=== PATIENT | female | born 1995 | race Two or more races ===

== ENCOUNTER 2016-12-23 03:07 | Emergency (ER) | payer OTHER ==
--- NOTE | 2016-12-23 03:26 | PDOC ---
[id number] No Limitations - History of Present Illness Initial Comments: 12/23/16 03:49 The patient is a 21 year old female, [facility], with a significant past medical history of dermatographia, asthma, anxiety, and depression, who presents to the emergency department complaining of intermittent chest pain for approximately 1 month. The patient describes her chest pain as a tightness and a pressure. The patient denies any associated shortness of breath, diaphoresis, or palpitation. The patient admits to a poor inconsistent diet due to long work hours. The patient reports she has not eaten for several hours and reports a burning sensation around her chest. The patient reports a history of costochondritis. The patient denies any abdominal pain, nausea, vomiting, diarrhea, or constipation. The patient denies any fever, chills, cough, headache , or dizziness. The patient denies any recent travel or sick contacts. Allergies: Metronidazole Past Surgical History: None reported. Social History: Current everyday smoker(approximately 6 cigarettes per day). Denies alcohol or drug use. PCP: Dr. Santana <Talat Hoyt - Last Filed: 12/23/16 03:49> <Christie Choi - Last Filed: 12/23/16 04:50> - General Stated Complaint: CHEST PAIN Time Seen by Provider: 12/23/16 03:18 Past History <Talat Hoyt - Last Filed: 12/23/16 03:49> - Past Medical History Asthma: Yes Psychiatric Problems: Yes (ANXIETY,DEPRESSION) - Reproductive History Cervical CA: No Dysfunctional Uterine Bleeding: No Ectopic : No Endometrial CA: No Polycystic Ovaries: No Tubal Ligation: No - Immunization History Immunization Up to Date: Yes - Psycho/Social/Smoking Cessation Hx Anxiety: Yes Suicidal Ideation: No Smoking History: Former smoker Have you smoked in the past 12 months: Yes Number of Cigarettes Smoked Daily: 6 'Breaking Loose' booklet given: 03/07/16 Hx Alcohol Use: No Drug/Substance Use Hx: No Substance Use Type: None <Christie Choi - Last Filed: 12/23/16 04:50> - Past Medical History Allergies/Adverse Reactions: Allergies Allergy/AdvReac Type Severity Reaction Status Date / Time metronidazole [From Flagyl] Allergy Hives Verified 12/23/16 03:26 Home Medications: Ambulatory Orders Lurasidone HCl [Latuda] 40 mg PO DAILY 05/17/16 Ibuprofen [Motrin -] 400 mg PO Q6H #30 tablet 10/01/16 Pantoprazole Sodium [Protonix -] 40 mg PO DAILY #30 tablet.ec 12/23/16 Sertraline HCl [Zoloft] 25 mg PO DAILY 12/23/16 Review of Systems - Review of Systems Able to Perform ROS?: Yes Comments:: 12/23/16 03:50 GENERAL/CONSTITUTIONAL: No fever or chills. No weakness. HEAD, EYES, EARS, NOSE AND THROAT: No change in vision. No ear pain or discharge. No sore throat. CARDIOVASCULAR: +Chest pain(tightness, pressure, and burning) No shortness of breath. RESPIRATORY: No cough, wheezing, or hemoptysis. GASTROINTESTINAL: No nausea, vomiting, diarrhea or constipation. GENITOURINARY: No dysuria, frequency, or change in urination. MUSCULOSKELETAL: No joint or muscle swelling or pain. No neck or back pain. SKIN: No rash NEUROLOGIC: No headache, vertigo, loss of consciousness, or change in strength/ sensation. ENDOCRINE: No increased thirst. No abnormal weight change. HEMATOLOGIC/LYMPHATIC: No anemia, easy bleeding, or history of blood clots. ALLERGIC/IMMUNOLOGIC: No hives or skin allergy. <Talat Hoyt - Last Filed: 12/23/16 03:49> *Physical Exam - Vital Signs Last Vital Signs Temp Pulse Resp BP Pulse Ox 98.2 F 80 14 116/81 100 12/23/16 03:27 12/23/16 03:27 12/23/16 03:27 12/23/16 03:27 12/23/16 03:27 - Physical Exam Comments: 12/23/16 03:51 GENERAL: Awake, alert, and fully oriented, in no acute distress HEAD: No signs of trauma EYES: PERRLA, EOMI, sclera anicteric, conjunctiva clear ENT: Auricles normal inspection, hearing grossly normal, nares patent, oropharynx clear without exudates. Moist mucosa NECK: Normal ROM, supple, no lymphadenopathy, JVD, or masses LUNGS: Breath sounds equal, clear to auscultation bilaterally. No wheezes, and no crackles HEART: Regular rate and rhythm, normal S1 and S2, no murmurs, rubs or gallops ABDOMEN: Soft, nontender, normoactive bowel sounds. No guarding, no rebound. No masses EXTREMITIES: Normal range of motion, no edema. No clubbing or cyanosis. No cords, erythema, or tenderness NEUROLOGICAL: Cranial nerves II through XII grossly intact. Normal speech, normal gait SKIN: Warm, Dry, normal turgor, no rashes or lesions noted. <Talat Hoyt - Last Filed: 12/23/16 03:49> Medical Decision Making - Medical Decision Making 12/23/16 04:47 Pt comes with burning sensation in chest on and off x 1 month. Occurs when she doesn't eat. States that she eats only 2 meals daily. She has a normal EKG, same as her old pattern from year ago. Pt's exam is normal. Pt's vitals are normal; she will not require cxr or labs at this time. Pt has GERD and she will be teated with maalox in the ER. Protonix rx sent to her pharmacy. Pt is stable for discharge. Follow with GI; Eat regular meals. Quit smoking cigarettes. <Christie Choi - Last Filed: 12/23/16 04:50> *DC/Admit/Observation/Transfer - Attestations Scribe Attestion: 12/23/16 03:52 Documentation prepared by Talat Hoyt, acting as medical genetics director for Christie Choi MD. <Talat Hoyt - Last Filed: 12/23/16 03:49> - Discharge Dispostion Admit: No <Christie Choi - Last Filed: 12/23/16 04:50> Diagnosis at time of Disposition: GERD (gastroesophageal reflux disease) - Discharge Dispostion Disposition: HOME Condition at time of disposition: Stable - Prescriptions Prescriptions: Pantoprazole Sodium [Protonix -] 40 mg PO DAILY #30 tablet.ec - Referrals Referrals: David Chand MD [Staff Physician] - Esme Cui MD [Primary Care Provider] - - Patient Instructions Printed Discharge Instructions: DI for Gastroesophageal Reflux Disease (GERD)
[2016-12-23 03:31] VITALS: BP 116/81; PULSE 80; TEMP 98.2; BMI 30.3
[2016-12-23] MEDS ORDERED: MAG HYDROX/AL HYDROX/SIMETH 30 ML UNIT-DOSE CUP PO ONE (03:46)
[2016-12-23] MEDS ORDERED: MAG HYDROX/AL HYDROX/SIMETH 30 ML UNIT-DOSE CUP ONE (03:50)
--- NOTE | 2016-12-27 15:23 | EKG ---
Test Reason : Blood Pressure : / mmHG Vent. Rate : 075 BPM Atrial Rate : 075 BPM P-R Int : 132 ms QRS Dur : 058 ms QT Int : 356 ms P-R-T Axes : 036 044 020 degrees QTc Int : 397 ms POOR DATA QUALITY, INTERPRETATION MAY BE ADVERSELY AFFECTED NORMAL SINUS RHYTHM LOW VOLTAGE QRS NONSPECIFIC ST AND T WAVE ABNORMALITY ABNORMAL ECG WHEN COMPARED WITH ECG OF 01-OCT-2016 11:56, NO SIGNIFICANT CHANGE WAS FOUND Confirmed by JERRY FALK MD ([id number]) on 12/27/2016 3:23:40 PM Referred By: Confirmed By:JERRY FALK MD
== END 2016-12-23 03:52 | disposition home or self-care (01) ==
LOC: JER 03:07
DX: K21.9 Gastro-esophageal reflux disease without esophagitis (principal); J45.909 Unspecified asthma, uncomplicated; F41.8 Other specified anxiety disorders; F17.210 Nicotine dependence, cigarettes, uncomplicated
CPT/HCPCS: 93005; 93010; 99281-25

== ENCOUNTER 2017-07-28 18:53 | Emergency (ER) | payer OTHER ==
[2017-07-28 19:13] VITALS: TEMP 98.6; BMI 28.2
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
[2017-07-28] MEDS ORDERED: SODIUM CHLORIDE 1,000 ML IV STA (20:14)
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
[2017-07-28 20:46] LABS: BASOPHIL 0.5 % (0-2.0); EOSINOPHIL 2.7 % (0-4.5); MCH 29.6 pg (25.7-33.7); MCHC 33.3 g/dl (32.0-36.0); MEAN PLT VOLUME 9.6 fl (7.5-11.1); NEUTROPHILS 60.1 % (42.8-82.8); PLATELET COUNT 296 K/MM3 (134-434); WHITE BLOOD COUNT 7.1 K/mm3 (4.0-10.0)
[2017-07-28 20:48] LABS: URINE APPEARANCE CLEAR; URINE BILIRUBIN NEGATIVE (NEGATIVE); URINE BLOOD 2+ (NEGATIVE); URINE COLOR LTYELLOW; URINE GLUCOSE (UA) NEGATIVE (NEGATIVE); URINE KETONE NEGATIVE (NEGATIVE); URINE NITRITE NEGATIVE (NEGATIVE); URINE PROTEIN NEGATIVE (NEGATIVE); URINE UROBILINOGEN NEGATIVE mg/dL (0.2-1.0)
[2017-07-28 20:55] LABS: URINE MUCUS RARE; URINE RBC 1 /hpf (0-3); URINE WBC <1 /hpf (3-5)
[2017-07-28 21:15] LABS: ANION GAP 6 (8-16); BILIRUBIN,TOTAL 0.4 mg/dL (0.2-1.0); CALCIUM 8.9 mg/dL (8.5-10.1); CO2 27 mmol/L (21-32); CREATININE 0.6 mg/dL (0.55-1.02); GLUCOSE,RANDOM 88 mg/dL (74-106); SGOT/AST 17 U/L (15-37); SGPT/ALT 21 U/L (12-78); TOT PROT 7.4 g/dl (6.4-8.2)
[2017-07-28 21:16] LABS: ALK PHOS 114 U/L (45-117)
[2017-07-28 22:14] LABS: URINE LEUK ESTERASE TRACE (NEGATIVE)
[2017-07-29] MEDS ORDERED: ACETAMINOPHEN 500 MG TABLET (FP) PO ONE (01:40)
[2017-07-29] MEDS ORDERED: ACETAMINOPHEN 325 MG TABLET (FP) ONE (01:43)
[2017-07-29 02:24] VITALS: BP 103/58; PULSE 78
== END 2017-07-29 02:25 | disposition home or self-care (01) ==
LOC: JER 18:53
PROC: 3E0337Z Introduction of Electrolytic and Water Balance Substance into Peripheral Vein, Percutaneous Approach (ICD-10-PCS; principal; 2017-07-28)
DX: S20.20XA Contusion of thorax, unspecified, initial encounter (principal); Y04.0XXA Assault by unarmed brawl or fight, initial encounter; Y93.89 Activity, other specified; Y92.89 Other specified places as the place of occurrence of the external cause; Y99.8 Other external cause status
CPT/HCPCS: 36415; 71111-TC; 74176-TC; 80053; 81003; 81015; 84703; 85025; 96360; 99283-25

== ENCOUNTER 2017-10-06 19:30 | Emergency (ER) | payer OTHER ==
[2017-10-06 20:05] VITALS: BP 122/72; PULSE 84; TEMP 98.1; BMI 30.3
--- NOTE | 2017-10-06 20:19 | PDOC ---
History of Present Illness - General Chief Complaint: Vaginal Bleeding Stated Complaint: VAGINAL BLEEDING Time Seen by Provider: 10/06/17 19:39 History Source: Patient Exam Limitations: No Limitations - History of Present Illness Initial Comments: 10/06/17 20:07 Patient is a 22-year-old female with no past medical history. Complains of vaginal bleeding and lower abdominal pain 2 weeks. States initially she only had mild cramping and spotting which has been increase in the past 2 weeks. Today states her pain has increased, now has 8/10, crampy type pain in the suprapubic area, continuous heavy vaginal bleeding, change in 1 pad an hour since 3 PM. States she called her provider at [facility] and was told to go to the hospital. Patient states she was on Depakote which was discontinued one year ago and started OCPs 2 months ago. She denies any headache , dizziness, fever, chills, dysuria. PMD: Dr. Esme Santana PMHx: Negative PSocHx: neg etoh, drug, cig ALL: NKDA GENERAL/CONSTITUTIONAL: [No fever or chills. No weakness. No weight change.] HEAD, EYES, EARS, NOSE AND THROAT: [No change in vision. No ear pain or discharge. No sore throat.] CARDIOVASCULAR: [No chest pain or shortness of breath.] RESPIRATORY: [No cough, wheezing, or hemoptysis.] GASTROINTESTINAL: [No nausea, vomiting, diarrhea or constipation. No rectal bleeding.] GENITOURINARY: [No dysuria, frequency, or change in urination.] MUSCULOSKELETAL: [No joint or muscle swelling or pain. No neck or back pain.] SKIN AND BREASTS: [No rash or easy bruising.] NEUROLOGIC: [No headache, vertigo, loss of consciousness, or loss of sensation.] PSYCHIATRIC: [No depression or anxiety.] ENDOCRINE: [No increased thirst. No abnormal weight change.] HEMATOLOGIC/LYMPHATIC: [No anemia, easy bleeding, or history of blood clots.] ALLERGIC/IMMUNOLOGIC: [No hives or skin allergy. No latex allergy.] GENERAL: [The patient is awake, alert, and fully oriented, in mild distress.] HEAD: [Normal with no signs of trauma.] EYES: [Pupils equal, round and reactive to light, extraocular movements intact, sclera anicteric, conjunctiva clear.] ENT: [Ears normal, nares patent, oropharynx clear without exudates. Moist mucous membranes.] NECK: [Normal range of motion, supple without lymphadenopathy, JVD, or masses.] LUNGS: [Breath sounds equal, clear to auscultation bilaterally. No wheezes, and no crackles.] HEART: [Regular rate and rhythm, normal S1 and S2 without murmur, rub.] ABDOMEN: [Soft, (+) tenderness suprapubic, normoactive bowel sounds. No guarding, no rebound. No masses.] PELVIC: minimal bleeding from closed os, no adnexal tendernesss no CMT EXTREMITIES: [Normal range of motion, no edema. No clubbing or cyanosis. No cords, erythema, or tenderness.] NEUROLOGICAL: [Cranial nerves II through XII grossly intact. Normal speech, normal gait.] PSYCH: [Normal mood, normal affect.] SKIN: [Warm, Dry, normal turgor, no rashes or lesions noted.] Past History - Past Medical History Allergies/Adverse Reactions: Allergies Allergy/AdvReac Type Severity Reaction Status Date / Time metronidazole [From Flagyl] Allergy Hives Verified 10/06/17 20:05 Home Medications: Ambulatory Orders [place] Carbonate [Eskalith -] 300 mg PO DAILY 07/28/17 Naproxen [Naprosyn -] 500 mg PO BID PRN #14 tablet 07/29/17 Asthma: Yes COPD: No Psychiatric Problems: Yes (ANXIETY,DEPRESSION) - Reproductive History Cervical CA: No Dysfunctional Uterine Bleeding: No Ectopic : No Endometrial CA: No Polycystic Ovaries: No Tubal Ligation: No - Immunization History Immunization Up to Date: Yes - Suicide/Smoking/Psychosocial Hx Smoking History: Current every day smoker Have you smoked in the past 12 months: No Number of Cigarettes Smoked Daily: 5 Information on smoking cessation initiated: No 'Breaking Loose' booklet given: 03/07/16 Hx Alcohol Use: No Drug/Substance Use Hx: No Substance Use Type: None *Physical Exam - Vital Signs Last Vital Signs Temp Pulse Resp BP Pulse Ox 98.1 F 84 18 122/72 100 10/06/17 19:30 10/06/17 19:30 10/06/17 19:30 10/06/17 19:30 10/06/17 19:30 ED Treatment Course - LABORATORY CBC & Chemistry Diagram: 10/06/17 20:30 10/06/17 21:30 Medical Decision Making - Medical Decision Making 10/06/17 20:19 Patient is a 22-year-old female with no past medical history. Complains of vaginal bleeding and lower abdominal pain 2 weeks with increased bleeding today using 1 pad per hour since 3 pm. Bleeding is likely harmonal. vs stable labs, check test. re-assess 10/06/17 22:46 Laboratory Tests 10/06/17 20:30 WBC 8.7 Hgb 13.6 Hct 41.0 Plt Count 272 hcg neg, UA neg except for blood Patient is improved still has mild pain will give toradol 30mg IV p/e No addtional bleeding since being in the ED. Pad check small amount of dark stain on the pad. I discussed the physical exam findings, ancillary test results and final diagnoses with the patient. I answered all of the patient's questions. The patient was satisfied with the care received and felt comfortable with the discharge plan and treatment plan. The Patient agrees to follow up with the primary care physician within 24-72 hours. 10/06/17 22:51 *DC/Admit/Observation/Transfer Diagnosis at time of Disposition: Dysfunctional uterine bleeding - Discharge Dispostion Disposition: HOME Condition at time of disposition: Stable - Referrals Referrals: Esme Cui MD [Primary Care Provider] - - Patient Instructions Printed Discharge Instructions: DI for Vaginal Bleeding Additional Instructions: Your Discharge Instructions: You must call primary care physician within 24 hours to arrange follow-up. Return to the Emergency Department with any new, persistent or worsening symptoms, for fever, chills, SOB, headache, dizziness or any other concerning changes that may occur. He was follow-up with your [facility] doctor. - Post Discharge Activity
[2017-10-06 20:41] LABS: BASO # 0.1 # (0.1-1); BASO % 0.8 % (0-2.0); EOS # 0.2 # (0-4.5); EOS % 2.6 % (0-4.5); LYMPH # 2.1 (8-40); MCHC 33.3 g/dl (32.0-36.0); MEAN CELL VOLUME 90.1 fl (80-96); MEAN PLT VOLUME 9.9 fl (7.5-11.1); MONO # 0.5 # (3.8-10.2); NEUT # 5.8 # (42.8-82.8); NEUT % 66.9 % (42.8-82.8); PLATELET COUNT 272 K/MM3 (134-434); RDW 12.8 % (11.6-15.6); URINE APPEARANCE CLEAR; URINE BILIRUBIN NEGATIVE (NEGATIVE); URINE BLOOD 3+ (NEGATIVE); URINE COLOR LTYELLOW; URINE GLUCOSE (UA) NEGATIVE (NEGATIVE); URINE KETONE NEGATIVE (NEGATIVE); URINE LEUK ESTERASE NEGATIVE (NEGATIVE); URINE NITRITE NEGATIVE (NEGATIVE); URINE PROTEIN NEGATIVE (NEGATIVE); URINE UROBILINOGEN NEGATIVE mg/dL (0.2-1.0); WHITE BLOOD COUNT 8.7 K/mm3 (4.0-10.0)
[2017-10-06 21:16] LABS: URINE BACTERIA RARE /hpf (NONE SEEN); URINE MUCUS RARE; URINE RBC 14 /hpf (0-3); URINE WBC 3 /hpf (3-5)
[2017-10-06 22:04] LABS: ALBUMIN 3.7 g/dl (3.4-5.0); ALK PHOS 78 U/L (45-117); ANION GAP 6 (8-16); BILIRUBIN,TOTAL 0.3 mg/dL (0.2-1.0); CALCIUM 8.8 mg/dL (8.5-10.1); CO2 26 mmol/L (21-32); CREATININE 0.7 mg/dL (0.55-1.02); GLUCOSE,RANDOM 80 mg/dL (74-106); SGOT/AST 12 U/L (15-37); SGPT/ALT 21 U/L (12-78); TOT PROT 6.9 g/dl (6.4-8.2)
[2017-10-06] MEDS ORDERED: KETOROLAC TROMETHAMINE 30 MG/1 ML VIAL IVPUSH ONE (22:50)
[2017-10-06] MEDS ORDERED: KETOROLAC TROMETHAMINE 30 MG/1 ML VIAL ONE (22:54)
[2017-10-06 22:57] LABS: URINE LEUK ESTERASE Negative (NEGATIVE)
== END 2017-10-06 23:08 | disposition home or self-care (01) ==
LOC: JER 19:30
PROC: 3E0333Z Introduction of Anti-inflammatory into Peripheral Vein, Percutaneous Approach (ICD-10-PCS; principal; 2017-10-06)
DX: N93.8 Other specified abnormal uterine and vaginal bleeding (principal)
CPT/HCPCS: 36415; 80053; 81003; 81015; 84702; 85025; 86850; 86900; 86901; 99283-25

== ENCOUNTER 2019-02-19 20:14 | Emergency (ER) | payer OTHER ==
[2019-02-19 20:36] VITALS: BP 119/73; PULSE 87; TEMP 98; BMI 30.3
--- NOTE | 2019-02-19 20:39 | PDOC ---
Rapid Medical Evaluation Chief Complaint: Labor Assessment Time Seen by Provider: 02/19/19 20:33 Medical Evaluation: Allergies Allergy/AdvReac Type Severity Reaction Status Date / Time metronidazole [From Flagyl] Allergy Hives Verified 10/06/17 20:05 Vital Signs Temp Pulse Resp BP Pulse Ox 98 F 87 20 119/73 99 02/19/19 20:32 02/19/19 20:32 02/19/19 20:32 02/19/19 20:32 02/19/19 20:32 02/19/19 20:37 I have performed a brief in-person evaluation of this patient. The patient presents with a chief complaint of: unsure of LMP and report finging out that she is weeks ago but does not knee how many weeks. report intermittent cramping abdominal pains. Denies vaginal bleeding, fever, chills Pertinent physical exam findings: A&O x 3 I have ordered the following: CBC, T&s, CMP, beta hcg The patient will proceed to the ED for further evaluation. Discharge Disposition - Diagnosis Qualifiers: Weeks of gestation: unspecified Qualified Code(s): Z34.90 - Encounter for supervision of normal , unspecified, unspecified trimester Abdominal pain Qualifiers: Abdominal location: unspecified location Qualified Code(s): R10.9 - Unspecified abdominal pain - Discharge Dispostion Condition at time of disposition: Stable - Referrals - Patient Instructions - Post Discharge Activity
--- NOTE | 2019-02-19 20:45 | PDOC ---
History of Present Illness - General Chief Complaint: Labor Assessment Stated Complaint: ABD PAIN Time Seen by Provider: 02/19/19 20:33 - History of Present Illness Initial Comments: 02/19/19 21:32 The patient is a 23 year old female with no significant PMH who presents for evaluation of lower abdominal pain. The patient notes that her LMP was sometime in December but is unsure how many weeks she is. She states that over the past 1-2 days she has been experiencing lower abdominal tightness with associated episodes of vomiting and nausea prompting her presentation to the ED for further evaluation. She states that she took several home tests which were positive as well as went to an urgent care, but has not followed with her OB for this . She otherwise denies fevers, chills, SOB, chest pain, vaginal bleeding, vaginal discharge, or changes with urination or bowel movements. Past History - Past Medical History Allergies/Adverse Reactions: Allergies Allergy/AdvReac Type Severity Reaction Status Date / Time metronidazole [From Flagyl] Allergy Hives Verified 02/19/19 20:44 Home Medications: Ambulatory Orders [place]rock Carbonate [Eskalith -] 300 mg PO DAILY 07/28/17 Naproxen [Naprosyn -] 500 mg PO BID PRN #14 tablet 07/29/17 Nitrofurantoin Monohyd/M-Cryst [Macrobid -] 100 mg PO BID #14 capsule 02/19/19 Asthma: Yes COPD: No Psychiatric Problems: Yes (ANXIETY,DEPRESSION) - Reproductive History Cervical CA: No Dysfunctional Uterine Bleeding: No Ectopic : No Endometrial CA: No Polycystic Ovaries: No Tubal Ligation: No - Immunization History Immunization Up to Date: Yes - Suicide/Smoking/Psychosocial Hx Smoking History: Smoker current status UNK Have you smoked in the past 12 months: Yes Number of Cigarettes Smoked Daily: 5 Information on smoking cessation initiated: No 'Breaking Loose' booklet given: 03/07/16 Hx Alcohol Use: No Drug/Substance Use Hx: No Substance Use Type: None Review of Systems - Review of Systems Comments:: 02/19/19 21:39 Constitutional: No fevers, chills, fatigue, malaise HEENT: No Rhinorrhea, nasal congestion, visual changes Cardiovascular: No chest pain, syncope, palpitations, lightheadedness Respiratory: No Cough, SOB, Hemoptysis, Gastrointestinal: Lower abdominal tightness, Nausea, Vomiting. No Constipation , Diarrhea, Melena Genitourinary: No Dysuria, Frequency, Urgency, Hesitancy, Hematuria, Flank pain Musculoskeletal: No Myalgia, arthralgia Skin: No rashes, itching, bruising, pallor Neurologic: No Headache, Dizziness, Numbness, Weakness, or Tingling Psychiatric: No Hallucinations. No SI or HI *Physical Exam - Vital Signs Last Vital Signs Temp Pulse Resp BP Pulse Ox 98 F 87 20 119/73 99 02/19/19 20:32 02/19/19 20:32 02/19/19 20:32 02/19/19 20:32 02/19/19 20:32 - Physical Exam Comments: 02/19/19 21:40 General Appearance: Nourished. No Apparent Distress HEENT: No Pharyngeal Erythema, Tonsillar Exudate, Tonsillar Erythema Neck: No Cervical Lymphadenopathy Respiratory/Chest: Lungs Clear, Normal Breath Sounds. No Crackles, Rales, Rhonchi, Wheezing Cardiovascular: Regular Rhythm, Regular Rate. No Murmur, Gallops, Rubs Gastrointestinal/Abdominal: Normal Bowel Sounds, Soft. No Guarding, Rebound, Tenderness Pelvic Exam: Normal external exam, Closed Cervical Os. No bleeding or discharge. No CMT or adenexal tenderness Musculoskeletal: No CVA Tenderness Extremity: Normal Capillary Refill Integumentary: Normal Color, Dry, Warm Neurologic: Fully Oriented, Alert, Normal Mood/Affect, Normal Response, ED Treatment Course - LABORATORY CBC & Chemistry Diagram: 02/19/19 20:57 02/19/19 20:57 Medical Decision Making - Medical Decision Making 02/19/19 21:40 The patient is a 23 year old female with no significant PMH who presents for evaluation of lower abdominal pain. Given the patient's history and physical exam, we will obtain a cbc, cmp, ua, beta-quant, type and screen, transvaginal US to evaluate further. We will treat the patient with iv fluids and pepcid and continue to monitor and reassess while here in the ED. 02/19/19 23:01 CBC, cmp, is unremarkable. UA demonstrates trace leuk esterase, elevated wbc with bacteria. We will treat the patient with macrobid. Transvaginal US demonstrates single live intrauterine at 7 weeks as read by our radiologist. The patient was reassessed and reports improvement in their symptoms. We are comfortable discharging the patient home in stable condition. Patient and family made aware of impression and plan, return precautions discussed including but not limited to worsening pain or symptoms, fevers, or signs of infection, chest pain, respiratory distress, inability to tolerate oral intake, dehydration, syncope, or neurologic changes. The patient is to follow up with PMD and specialist as recommended within 1 week, follow up information provided and the patient will call for an appointment. The patient is to take Macrobid as instructed for duration of time and continue with supportive care, avoid triggers and precipitants. Patient is safe for outpatient follow-up. *DC/Admit/Observation/Transfer Diagnosis at time of Disposition: Qualifiers: Weeks of gestation: unspecified Qualified Code(s): Z34.90 - Encounter for supervision of normal , unspecified, unspecified trimester Abdominal pain Qualifiers: Abdominal location: unspecified location Qualified Code(s): R10.9 - Unspecified abdominal pain - Discharge Dispostion Disposition: HOME Condition at time of disposition: Stable - Prescriptions Prescriptions: Nitrofurantoin Monohyd/M-Cryst [Macrobid -] 100 mg PO BID #14 capsule - Referrals Referrals: Jim Quintana MD [Staff Physician] - - Patient Instructions Printed Discharge Instructions: DI for Urinary Tract Infection (UTI) Additional Instructions: 1) Please follow-up with your primary care doctor in the next 2-3 days. Please call tomorrow to schedule a follow up appointment. If you cannot follow up with your doctor within 1 week please return to the Emergency Department for any urgent issues. 2) Your laboratory / imaging results were normal here in the ER. 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 3) If you have any worsening of symptoms or any other concerns please return to the ER immediately. Return if worsening symptoms including fevers, headache, vomiting, visual or hearing disturbances, abdominal pain, chest pain, shortness of breath, syncope, dehydration, inability to take things by mouth/vomiting, altered mental status, or worsening concerning symptoms. 4) Please continue taking your home medications as directed. Your medications on discharge include Macrobid. Side effects may include upset stomach, abdominal pain, vomiting, or diarrhea. Do not drink alcohol with your medications. - Post Discharge Activity
[2019-02-19 21:16] LABS: BASO % 0.4 % (0-2.0); EOS % 1.9 % (0-4.5); HEMATOCRIT 39.1 % (32.4-45.2); LYMPH % 18.1 % (8-40); MCH 31.3 pg (25.7-33.7); MCHC 33.3 g/dl (32.0-36.0); MEAN CELL VOLUME 94.1 fl (80-96); MEAN PLT VOLUME 9.5 fl (7.5-11.1); MONO % 5.2 % (3.8-10.2); NEUT % 74.4 % (42.8-82.8); PLATELET COUNT 271 K/MM3 (134-434); RBC 4.16 M/mm3 (3.60-5.2); RDW 12.7 % (11.6-15.6); WHITE BLOOD COUNT 9.5 K/mm3 (4.0-10.0)
[2019-02-19] MEDS ORDERED: FAMOTIDINE 20 MG/50 ML IVPB 20 MG/50 ML MG IVPB ONE (21:24)
[2019-02-19] MEDS ORDERED: SODIUM CHLORIDE 1,000 ML IV STA (21:24)
[2019-02-19 21:41] LABS: EPI CELLS 17.5 /HPF (0-5/HPF); URINE APPEARANCE CLEAR; URINE BACTERIA 177.2 /hpf (NEGATIVE); URINE BILIRUBIN NEGATIVE (NEGATIVE); URINE CASTS 5 /lpf (0-8); URINE COLOR YELLOW; URINE GLUCOSE (UA) NEGATIVE (NEGATIVE); URINE KETONE TRACE (NEGATIVE); URINE LEUK ESTERASE TRACE (NEGATIVE); URINE NITRITE NEGATIVE (NEGATIVE); URINE PROTEIN NEGATIVE (NEGATIVE); URINE RBC 2 /hpf (0-4); URINE UROBILINOGEN 0.2 mg/dL (0.2-1.0); URINE WBC 3 /hpf (0-5)
--- NOTE | 2019-02-19 22:04 | PDOC ---
Documentation entered by Kenna Espino SCRIBE, acting as scribe for Davina Toro DO. Davina Toro DO: This documentation has been prepared by the Srinivas thurman Daisy, SCRIBE, under my direction and personally reviewed by me in its entirety. I confirm that the documentation accurately reflects all work, treatment, procedures, and medical decision making performed by me. Attending Attestation - Resident Resident Name: Ciaran Ortega - ED Attending Attestation I have performed the following: I have examined & evaluated the patient, The case was reviewed & discussed with the resident, I agree w/resident's findings & plan - HPI HPI: 02/19/19 21:21 The patient is a 23YOF, , unknown LMP, who presents to the ER for epigastric pain and vomiting. Patient has not followed up with an [employer] or had an ultrasound. Allergies: Metronidazole - Physicial Exam PE: 02/19/19 21:29 ADULT PHYSICAL EXAM Constitutional: Awake, alert, oriented. No acute distress. Cardiovascular: Regular rate. Regular rhythm. S1, S2 regular. Distal pulses are 2+ and symmetric. Pulmonary/Chest: No evidence of respiratory distress. Clear to auscultation bilaterally No wheezing, rales or rhonchi. Abdominal: Soft and non-distended. There is no tenderness. No palpable uterus. Back: No CVA tenderness. Musculoskeletal: No edema. Full range of motion in all extremities. Skin: Skin is warm and dry. Neurological: Alert and oriented to person, place, and time. - Medical Decision Making 02/19/19 22:02 I, Dr. Davina Toro DO, attest that this document has been prepared under my direction and personally reviewed by me in its entirety. I further attest, that it accurately reflects all work, treatment, procedures and medical decision -making performed by me. 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
[2019-02-19 22:13] LABS: BILIRUBIN,TOTAL 0.2 mg/dL (0.2-1); CALCIUM 8.9 mg/dL (8.5-10.1); CREATININE 0.5 mg/dL (0.55-1.3); POTASSIUM 4.2 mmol/L (3.5-5.1)
== END 2019-02-19 23:10 | disposition home or self-care (01) ==
LOC: JER 20:14
PROC: 3E0337Z Introduction of Electrolytic and Water Balance Substance into Peripheral Vein, Percutaneous Approach (ICD-10-PCS; principal; 2019-02-19)
DX: O26.891 Other specified pregnancy related conditions, first trimester (principal); O23.31 Infections of other parts of urinary tract in pregnancy, first trimester; Z3A.01 Less than 8 weeks gestation of pregnancy
CPT/HCPCS: 36415; 76817-TC; 80053; 81003; 84702; 85025; 86850; 86900; 86901; 87086; 99282-25; J7030

== ENCOUNTER 2019-07-18 13:40 | Emergency (ER) | payer OTHER ==
[2019-07-18 13:52] VITALS: BP 114/72; BMI 31.9
[2019-07-18 14:26] VITALS: PULSE 86; TEMP 98.2
== END 2019-07-18 15:30 | disposition home or self-care (01) ==
LOC: JER 13:40
DX: O26.893 Other specified pregnancy related conditions, third trimester (principal); M54.89 Other dorsalgia; N89.8 Other specified noninflammatory disorders of vagina; Z3A.28 28 weeks gestation of pregnancy
CPT/HCPCS: 76815-TC; 99281-25

== ENCOUNTER 2019-09-07 12:25 | Inpatient (IN) | payer OTHER ==
[2019-09-07] MEDS ORDERED: NIFEdipine 10 MG CAPSULE (FP) PO STA (14:11)
[2019-09-07] MEDS: ELECTROLYTE-148 SOLN 1,000 ML IV SCH (14:20)
[2019-09-07] MEDS ORDERED: NIFEdipine 10 MG CAPSULE (FP) ONE (14:24)
[2019-09-07] MEDS ORDERED: MAGNESIUM 4GM/H20 - 4 GM/100 ML IVPB IVPB SCH (14:30)
--- NOTE | 2019-09-07 14:37 | HP ---
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: No: Alzheimer's, CVA, Dementia, Migraine, Multiple Sclerosis, Peripheral Neuropathy, Parkinson's, Seizure, Syncope, TIA, Vertigo, Other Cardiovascular: No: AFIB, Aneurysm, Aortic Insufficiency, Aortic Stenosis, CAD, CHF, Deep Vein Thrombosis, HTN, Hyperlipdemia, PA, Mitral Insufficiency, Mitral Stenosis, Murmur, Pulmonary Hypertension, Other Pulmonary: No: Asthma, Bronchitis, Cancer, COPD, O2 Dependent, Pneumonia, Previously Intubated, Pulmonary Embolus, Pulmonary Fibrosis, Sleep Apnea, Other Gastrointestinal: No: Ascites, Cancer, Constipation, Crohn's Disease, Diverticulitis, Diverticulosis, Esophageal Varices, Gastritis, GERD, GI Bleed, Hemorrhoids, Hiatal Hernia, Inflamatory Bowel Disease, Irritable Bowel Disease, Pancreatitis, Peptic Ulcer Disease, Ulcerative Colitis, Other Hepatobiliary: No: Cirrhosis, Cholelithiasis, Cholecystitis, Choledocholithiasis , Hepatitis A, Hepatitis B, Hepatitis C, Other Renal/: No: Renal Failure, Renal Inusuff, BPH, Cancer, Hematuria, Hemodialysis , Neurogenic Bladder, Renal Calculi, UTI, Other Reproductive: No: Ectopic , Endometriosis, Fibroids, PID, Polycystic Ovary Syndrome, Postmenopausal, Other Heme/Onc: No: Anemia, B12 Deficiency, Bleeding Disorder, Cancer, Current Chemotherapy, Current Radiation Therapy, Hemochromatosis, Hypercoaguable State, Myeloproliferative Synd, Sickle Cell Disease, Sickle Cell Trait, Thrombocytopenia, Other Infectious Disease: No: AIDS, C-Diff, Herpes Zoster, HIV, MRSA, STD's, Tuberculosis, VREF, Other Psych: No: Addictions, Anxiety, Bipolar, Depression, Panic, Psychosis, Schizophrenia, Other Musculoskeletal: No: Bursitis, Chronic low back pain, Hemiparesis, Hemiplegia, Osteoarthritis, Paraplegia, Other Rheumatology: No: Fibromyalgia, Gout, Lupus, Rheumatoid Arthritis, Sarcoidosis, Vasculitis, Other ENT: No: Allergic Rhinitis, Sinusitis, Other Endocrine: No: [place]moren[place]'s Disease, [place]'s Disease, Diabetes Insipidus, Diabetes Mellitus, Hyperparathyroidism, Hyperthyroidism, Hypothyroidism, Osteopenia, SIADH, Other Dermatology: No: Basal Cell, Cellulitis, Eczema, Melanoma, Psoriasis, Squamous Cell, Other - Past Surgical History Past Surgical History: No: None, AAA Repair, AICD, Amputation, Appendectomy, Arthrosocopy, AV Fistula/Graft, Bariatric Surgery, Breast Biopsy, Bypass, CABG, Carotid Endarterectomy, Cataract Removal, Cholecystectomy, Colectomy, Colonoscopy, Colostomy, Craniotomy, , Cystectomy, Hernia Repair, Hysterectomy, Ileal Conduit, Ileosotomy, Joint Replacement, Kidney Transplant, Laminectomy, Liver Transplant, Mastectomy, Nephrectomy, Oopherectomy, Orchiectomy, Permanent Pacemaker, Prostatectomy, Splenectomy, Stent, Thoracotomy , TURP, Tonsillectomy, Tubal Ligation, Upper Endoscopy, Valve Replacement, Vasectomy, Vein Stripping/Ligation Hx Myomectomy: No Hx Transabdominal Cerclage: No - Smoking History Smoking history: Never smoked Have you smoked in the past 12 months: No Aproximately how many cigarettes per day: 5 - Alcohol/Substance Use Hx Alcohol Use: No History of Substance Use: reports: None Home Medications - Allergies Allergies/Adverse Reactions: Allergies Allergy/AdvReac Type Severity Reaction Status Date / Time medroxyprogesterone Allergy Severe Hives Verified 08/26/19 15:00 [From Depo-Provera] metronidazole [From Flagyl] Allergy Severe Hives Verified 08/26/19 15:00 mushroom Allergy Severe Difficulty Verified 08/26/19 15:00 Breathing kiwi Allergy Rash Verified 08/26/19 15:00 - Home Medications Home Medications: Ambulatory Orders Vitamins (Sjr) - 1 tab PO DAILY 08/12/19 Review of Systems - Review of Systems Constitutional: reports: No Symptoms Eyes: reports: No Symptoms HENT: reports: Other (headache) Neck: reports: No Symptoms Cardiovascular: reports: No Symptoms Respiratory: reports: SOB Gastrointestinal: reports: Other (epigastric pain) Genitourinary: reports: No Symptoms Breasts: reports: Other (deferred) Musculoskeletal: reports: No Symptoms Integumentary: reports: No Symptoms Neurological: reports: Headache Endocrine: reports: No Symptoms Hematology/Lymphatic: reports: No Symptoms Psychiatric: reports: No Symptoms Physical Exam - Maternity Vital Signs: BP in severe range consistently Constitutional: Yes: Well Nourished HENT: Yes: Atraumatic Neck: Yes: Supple Cardiovascular: Yes: Regular Rate and Rhythm Breast(s): Yes: Other (deferred) - Abdominal Exam/OB Number of Fetuses: Single Presentation: Vertex Regularity: Irritability Intensity: Mild Heart Rate (range): 130 Category: II Accelerations: None Decelerations: None - Vaginal Exam/OB Vaginal Bleediing: No Speculum Exam: No Dilatation (cm): 0.5 Effacement (%): 40 Amniotic Membrane Status: Intact Station: -3 - Physical Exam Musculoskeletal: Yes: WNL Extremities: Yes: WNL Edema: LLE: 2+, RLE: 2+ Integumentary: Yes: WNL Deep Tendon Reflex Grade: Normal but brisk +3 ...Motor Strength: WNL Psychiatric: Yes: Alert, Oriented - Labs Lab Results: Stat labs ordered Imaging - Results Ultrasound: Report Reviewed Problem List - Problems (1) Preeclampsia, severe Code(s): O14.10 - SEVERE PRE-ECLAMPSIA, UNSPECIFIED TRIMESTER Assessment/Plan 24 y/o @ 35.5wks, presenting with symptomatic hypertensive crisis, A1GDM, FHT cat I with minimal variability. PEC with severe features suspected and stat labs pending. patient was counseled at bedside regarding diagnosis and need for BP control and indication for delivery. All questions answered and mode of delivery discussed. -Initiate magnesium prophylaxis after IV access is obtained -PO nifedipine - Admission -BP controlled
[2019-09-07 15:10] LABS: BASO % 0.1 % (0-2.0); EOS % 0.4 % (0-4.5); HEMATOCRIT 31.3 % (32.4-45.2); MCHC 35.2 g/dl (32.0-36.0); MEAN CELL VOLUME 91.1 fl (80-96); MEAN PLT VOLUME 10.7 fl (7.5-11.1); MONO % 5.5 % (3.8-10.2); PLATELET COUNT 113 K/MM3 (134-434); RBC 3.44 M/mm3 (3.60-5.2); RDW 13.9 % (11.6-15.6)
[2019-09-07] MEDS: MAGNESIUM SULFATE 20GM/500ML - 20 GM/500 ML INFUS.BAG IVPB SCH (15:30)
[2019-09-07 15:35] LABS: ALBUMIN 2.3 g/dl (3.4-5.0); BILIRUBIN,TOTAL 0.4 mg/dL (0.2-1); BLOOD UREA NITROGEN 11.8 mg/dL (7-18); CALCIUM 8.5 mg/dL (8.5-10.1); CREATININE 0.8 mg/dL (0.55-1.3); POTASSIUM 3.9 mmol/L (3.5-5.1); TOT PROT 5.5 g/dl (6.4-8.2); URIC ACID 8.1 mg/dL (2.6-7.2)
--- NOTE | 2019-09-07 16:08 | PN ---
Progress Note (short form) - Note Progress Note: Patient was counseled regarding route of delivery. FHT showed episodes of cat II with variables. BP in mild to normal range. Decision for CD made and patient accompanied by FOB. Informed consent obtained and patient on mag prophylaxis. NICU informed. -proceed with CD -Mag prophylaxis for 24 hrs Problem List - Problems (1) Preeclampsia, severe Code(s): O14.10 - SEVERE PRE-ECLAMPSIA, UNSPECIFIED TRIMESTER
[2019-09-07] MEDS ORDERED: CITRIC ACID/SODIUM CITRATE 30 ML UNIT-DOSE CUP PO ONE (16:09)
[2019-09-07 16:14] VITALS: BMI 33.2
[2019-09-07 16:19] LABS: EPI CELLS 7.7 /HPF (0-5/HPF); HYALINE CASTS 20 /lpf (0-8); PH,URINE 6.5 (5.0-8.0); URINE APPEARANCE CLOUDY; URINE BACTERIA 1545.6 /hpf (NEGATIVE); URINE BILIRUBIN NEGATIVE (NEGATIVE); URINE COLOR YELLOW; URINE GLUCOSE (UA) NEGATIVE (NEGATIVE); URINE KETONE NEGATIVE (NEGATIVE); URINE LEUK ESTERASE 1+ (NEGATIVE); URINE NITRITE NEGATIVE (NEGATIVE); URINE PROTEIN 4+ (NEGATIVE); URINE RBC 3 /hpf (0-4); URINE UROBILINOGEN 0.2 mg/dL (0.2-1.0); URINE WBC 48 /hpf (0-5)
[2019-09-07] MEDS ORDERED: ONDANSETRON 4 MG/2 ML VIAL IVPUSH PRN (16:19)
[2019-09-07] MEDS ORDERED: DEXAMETHASONE SOD PHOSPHATE 4 MG/1 ML VIAL ONE (16:25)
[2019-09-07] MEDS ORDERED: KETOROLAC TROMETHAMINE 30 MG/1 ML VIAL ONE (16:25)
[2019-09-07] MEDS ORDERED: MIDAZOLAM HCL 2 MG/2 ML SINGLE DOSE VIAL ONE (16:39)
[2019-09-07] MEDS: OXYTOCIN 20 UNITS in 0.9% NS 20 UNIT/1,000 ML INFUS.BAG IV SCH (16:54)
[2019-09-07] MEDS ORDERED: PHENYLEPHRINE HCL 10 MG/1 ML SINGLE DOSE VIAL ONE (16:55)
--- NOTE | 2019-09-07 17:24 | PN ---
Progress Note (short form) - Note Progress Note: I assisted Dr. Gaxiola at the c/section for the entirety of the case.
--- NOTE | 2019-09-07 17:49 | OP ---
Operative Note - Note: Operative Date: 09/07/19 (dic #[id number]) Pre-Operative Diagnosis: Pre-eclampsia with severe features Operation: LTCS Findings: see dictation Post-Operative Diagnosis: Same as Pre-op Surgeon: Darci Gaxiola Grease And Tallow Pumper: Jim Quintana Anesthesia: Spinal Estimated Blood Loss (mls): 800 Fluid Volume Replaced (mls): 1,600 Operative Report Dictated: Yes
--- NOTE | 2019-09-07 18:39 | OP ---
DATE OF OPERATION: 09/07/2019 PREOPERATIVE DIAGNOSIS: A 24-year-old 2, para 0-0-1-1 at 35-5 weeks of gestation presenting to labor and delivery with preeclampsia with severe features, heart rate category 2, gestational diabetes. POSTOPERATIVE DIAGNOSIS: A 24-year-old 2, para 0-0-1-1 at 35-5 weeks of gestation presenting to labor and delivery with preeclampsia with severe features, heart rate category 2, gestational diabetes. PROCEDURE: Primary low transverse section. ATTENDING: Tiffani Bay MD BUS WASHER: Jim Quintana MD ANESTHESIA: Spinal. ESTIMATED BLOOD LOSS: 800 mL. INTRAVENOUS FLUIDS: 600 mL of crystalloid. COMPLICATIONS: None. FINDINGS: Normal abdominal wall anatomy. Bilateral tubes and ovaries consistent with normal anatomy. The lower uterine segment was slightly effaced. Infant in cephalic presentation. No nuchal cord. Clear amniotic fluid, scant. Live, fibroid male. Small for gestational age, 4 pounds 11 ounces. DESCRIPTION OF PROCEDURE: Patient was taken to the operating room where anesthesia was found to be adequate. She was then prepped and draped in a normal sterile fashion. A Gao catheter was placed atraumatically. Appropriate time-out took place. Pfannenstiel skin incision was made with a scalpel and carried to underlying fascia with the Bovie. The fascia was incised in the midline, and incision was extended laterally with sharp dissection. The underlying rectus muscles were dissected off sharply and bluntly. The peritoneum was entered bluntly. The incision was extended laterally with sharp dissection. Lower uterine segment as mentioned previously. Low transverse uterine segment incision was made with a scalpel and extended laterally with blunt dissection. Amniotomy revealed clear amniotic fluid. in cephalic presentation. Infant was elevated through the cervical incision with mild fundal pressure. No nuchal cord present. The cord was clamped after delay. Cord samples obtained. was handed off to the awaiting NICU staff. Placenta was elevated manually and intact. The uterus was exteriorized through the surgical incision. The intrauterine cavity was cleared of all clots and debris. The lower uterine segment incision was reapproximated with 1-0 Polysorb in a running , locked fashion. Excellent structure reapproximation and hemostasis with 1-layer suture. The uterus was internalized to the pelvic cavity, and gutters were cleared of all clots and debris. Lower uterine segment incision inspection noted to be dry. Bladder dome and rectus muscle fascial interface was noted to be intact. The fascial incision was approximated with 0 Polysorb running, nonlocked sutures. Excellent structural reapproximation achieved and confirmed by digital palpation by the surgeon. Subcutaneous tissues were copiously irrigated. Bleeders neutralized with Bovie cautery. Skin incision was reapproximated with 3-0 Monocryl subcuticular sutures. Excellent reapproximation and hemostasis achieved. Patient in stable condition to the recovery room where she will continue observation, blood pressure control, and magnesium seizure prophylaxis. TIFFANI BAY MD [id number] MTDD
[2019-09-07] MEDS ORDERED: OXYTOCIN 20 UNITS in 0.9% NS 20 UNIT/1,000 ML INFUS.BAG IV ONE (23:01)
[2019-09-08] MEDS: LABETALOL HCL 200 MG TABLET (FP) PO SCH ×4 (02:57→13:15)
[2019-09-08] MEDS ORDERED: MAGNESIUM SULFATE 20GM/500ML - 20 GM/500 ML INFUS.BAG ONE (03:17)
[2019-09-08] MEDS ORDERED: LABETALOL HCL 200 MG TABLET (FP) ONE ×3 (03:24→18:12)
--- NOTE | 2019-09-08 07:00 | PN ---
Post Progress Note - Subjective Subjective: Patient reports improvement in epigastric pain, KELLY subsided, baby is doing well , no vision changes, Post Day: 1 Type of Delivery: Primary C/S Vital Signs: Vital Signs Temperature 97.8 F 09/08/19 06:00 Pulse Rate 87 09/08/19 06:00 Respiratory Rate 20 09/08/19 06:00 Blood Pressure 104/58 L 09/08/19 06:00 O2 Sat by Pulse Oximetry (%) 100 09/07/19 17:35 Breast Exam: Yes: Other (deferred) Uterus: Yes: Fundus Firm Incision: Yes: Dressing dry and intact (removed) Abdomen/GI: Yes: Abdomen soft, Other (no RUQ pain) Lochia, amount: Moderate Extremities: Yes: Calves non-tender - Labs Labs: CBC WBC 9.0 K/mm3 (4.0-10.0) 09/07/19 14:00 RBC 3.44 M/mm3 (3.60-5.2) L 09/07/19 14:00 Hgb 11.0 GM/dL (10.7-15.3) 09/07/19 14:00 Hct 31.3 % (32.4-45.2) L D 09/07/19 14:00 MCV 91.1 fl (80-96) 09/07/19 14:00 MCH 32.0 pg (25.7-33.7) 09/07/19 14:00 MCHC 35.2 g/dl (32.0-36.0) 09/07/19 14:00 RDW 13.9 % (11.6-15.6) 09/07/19 14:00 Plt Count 113 K/MM3 (134-434) L D 09/07/19 14:00 MPV 10.7 fl (7.5-11.1) D 09/07/19 14:00 Absolute Neuts (auto) 7.5 K/mm3 (1.5-8.0) 09/07/19 14:00 Neutrophils % 83.0 % (42.8-82.8) H 09/07/19 14:00 Lymphocytes % 11.0 % (8-40) D 09/07/19 14:00 Monocytes % 5.5 % (3.8-10.2) 09/07/19 14:00 Eosinophils % 0.4 % (0-4.5) 09/07/19 14:00 Basophils % 0.1 % (0-2.0) 09/07/19 14:00 Nucleated RBC % 0 % (0-0) 09/07/19 14:00 Other Findings, Remarks: ext: 1+ edema, 3+ DTR, no clonus Problem List - Problems (1) Preeclampsia, severe Code(s): O14.10 - SEVERE PRE-ECLAMPSIA, UNSPECIFIED TRIMESTER Assessment/Plan POD # 1 S/P urgent CD due to PEC with severe features, on mag prophylaxis in stable condition, adequate UOP. BP in normal range on labetalol 200mg BID. -AM CBC, mag level -Continue mag prophylaxis for 24 hrs PP -PP/post-op care
--- NOTE | 2019-09-08 08:31 | PN ---
Progress Note (short form) - Note Progress Note: Anesthesia Post Op Note Pt seen s/p spinal for c/s Pt remains on mag for pre-eclampsia Pt denies n/v, no h/a, no puritis velazco in situ pain control good VSS no apparent anesthesia complications Darin Kyle.
[2019-09-08 08:40] LABS: BASO % 0.1 % (0-2.0); HEMATOCRIT 26.9 % (32.4-45.2); HEMOGLOBIN 9.4 GM/dL (10.7-15.3); LYMPH % 9.3 % (8-40); MCH 32.1 pg (25.7-33.7); MCHC 35.1 g/dl (32.0-36.0); MEAN CELL VOLUME 91.6 fl (80-96); MEAN PLT VOLUME 10.5 fl (7.5-11.1); MONO % 4.8 % (3.8-10.2); NEUT % 85.8 % (42.8-82.8); PLATELET COUNT 109 K/MM3 (134-434); RBC 2.93 M/mm3 (3.60-5.2)
[2019-09-08] MEDS ORDERED: OXYTOCIN 20 UNITS in 0.9% NS 20 UNIT/1,000 ML INFUS.BAG IV ONE (12:40)
[2019-09-08] MEDS: OXYTOCIN 20 UNITS in 0.9% NS 20 UNIT/1,000 ML INFUS.BAG IV SCH (12:45)
[2019-09-08] MEDS ORDERED: IBUPROFEN 600 MG TABLET (FP) PO ONE (13:12)
[2019-09-08] MEDS ORDERED: ACETAMINOPHEN 325 MG TABLET (FP) ONE (13:12)
[2019-09-08] MEDS: ACETAMINOPHEN 325 MG TABLET (FP) PO PRN ×2 (13:15→23:36)
[2019-09-08] MEDS: IBUPROFEN 600 MG TABLET (FP) PO PRN (13:15)
--- NOTE | 2019-09-08 16:51 | PN ---
Progress Note (short form) - Note Progress Note: s/p primary c/section by Dr Gaxiola 35.5 weeks for preclempsia on 09/07/19 . Presently IV MgSo4 1gm/hr on maintainance dose pt c/o headache on & off , c/o palpitation not passing flatus yet tolerating po fluids Selected Entries 09/08/19 09/08/19 09/08/19 12:00 13:00 14:00 Temperature 98.4 F Pulse Rate Blood Pressure 125/65 140/93 116/65 09/08/19 09/08/19 15:00 16:00 Temperature 97.9 F Pulse Rate 88 85 Blood Pressure 129/87 139/92 pt received po labetalol at 4.00 AM & 1.00 PM o/o rs cta , no crepts or rales S1 S2 sinus rythm i/o 750 ml/1800 ml pt is also taking PO fluids Reflexes brisk 3+/3+ pt will complete 24 hrs of MgSo4 at 6.45. ,d/c MgSo4 & d/c Gao at the same time Transfer pt to floor care after [address] Surinder Hernandez requested , recommend Po labetalol 200 mg q 6h prn for BP 140/ 90
[2019-09-08] MEDS ORDERED: BISACODYL 10 MG SUPP.RECT RC PRN (17:51)
[2019-09-08] MEDS: LABETALOL HCL 200 MG TABLET (FP) PO PRN (18:20)
[2019-09-08] MEDS: oxyCODONE HCL 5 MG TABLET PO PRN (23:35)
[2019-09-09] MEDS: ACETAMINOPHEN 325 MG TABLET (FP) PO PRN ×4 (05:31→21:45)
[2019-09-09] MEDS: oxyCODONE HCL 5 MG TABLET PO PRN ×2 (05:32→11:45)
[2019-09-09] MEDS: LABETALOL HCL 200 MG TABLET (FP) PO PRN ×2 (05:33→11:33)
[2019-09-09] MEDS: SIMETHICONE 80 MG TAB.CHEW (FP) PO PRN ×3 (07:31→21:44)
--- NOTE | 2019-09-09 08:07 | PN ---
Post Progress Note - Subjective Subjective: c/o nausea , discomfort , gaseous . vomited once today AM voiding without difficulty passing gas when she walks no headache Type of Delivery: Primary C/S Vital Signs: Vital Signs Temperature 98.3 F 09/09/19 05:36 Pulse Rate 87 09/09/19 05:36 Respiratory Rate 18 09/09/19 05:36 Blood Pressure 142/101 H 09/09/19 05:36 O2 Sat by Pulse Oximetry (%) 100 09/07/19 17:35 Selected Entries 09/08/19 09/08/19 09/08/19 18:00 19:00 22:00 Blood Pressure 147/102 H 141/92 129/60 09/09/19 02:00 Blood Pressure 137/78 Breast Exam: Yes: Soft, Other (bottle & breast feeding plan ). No: Engorged Uterus: Yes: Fundus Firm, Fundus below umbilicus Incision: Yes: Sutures intact. No: Redness, Oozing Abdomen/GI: Yes: Abdomen soft, Abdominal Distention (mild , BS active ), Passing flatus, Tolerating PO (clear fluids ) Lochia: Yes: Rubra Lochia, amount: Moderate Extremities: Yes: Calves non-tender, Edema Perineum: Yes: Intact Activity: Ambulating - Labs Labs: CBC WBC 8.0 K/mm3 (4.0-10.0) 09/08/19 07:30 RBC 2.93 M/mm3 (3.60-5.2) L 09/08/19 07:30 Hgb 9.4 GM/dL (10.7-15.3) L 09/08/19 07:30 Hct 26.9 % (32.4-45.2) L 09/08/19 07:30 MCV 91.6 fl (80-96) 09/08/19 07:30 MCH 32.1 pg (25.7-33.7) 09/08/19 07:30 MCHC 35.1 g/dl (32.0-36.0) 09/08/19 07:30 RDW 14.0 % (11.6-15.6) 09/08/19 07:30 Plt Count 109 K/MM3 (134-434) L 09/08/19 07:30 MPV 10.5 fl (7.5-11.1) 09/08/19 07:30 Absolute Neuts (auto) 6.9 K/mm3 (1.5-8.0) 09/08/19 07:30 Neutrophils % 85.8 % (42.8-82.8) H 09/08/19 07:30 Lymphocytes % 9.3 % (8-40) 09/08/19 07:30 Monocytes % 4.8 % (3.8-10.2) 09/08/19 07:30 Eosinophils % 0.0 % (0-4.5) D 09/08/19 07:30 Basophils % 0.1 % (0-2.0) 09/08/19 07:30 Nucleated RBC % 0 % (0-0) 09/08/19 07:30 Other Findings, Remarks: rs cta i/o 650/900 Problem List - Problems (1) Status post section routine follow-up Code(s): Z39.2 - ENCOUNTER FOR ROUTINE FOLLOW-UP; Z98.891 - HISTORY OF UTERINE SCAR FROM PREVIOUS SURGERY (2) Preeclampsia, severe Code(s): O14.10 - SEVERE PRE-ECLAMPSIA, UNSPECIFIED TRIMESTER Qualifiers: Trimester: third trimester Qualified Code(s): O14.13 - Severe pre-eclampsia , third trimester Assessment/Plan po c/section due to severe preclempsia s/p 24 hr MgSo4 on po Labetalol for HTN management plan : Dr Ray will do consult today follow Labetalol orders as per Dr ray po mylicon may help for gaseous discomfort
--- NOTE | 2019-09-09 12:39 | CONSULT ---
Consult - text type - Consultation Consultation Note: Renal consult for hypertension This is a 24 year old woman with history of asthma (as a child) who presented with sob and found to have hypertension/preeclamspia now s/p with hypertension. This was her first . She did have headache at home. Denies any chest pain, palpitations, N/V/D. Now has moderate pain in incision site. Denies any fever or chills. Grandmother has heart disease. PMhx: as above Allergies: As listed in EMR Family hx: Grandmother CAD Social hx: No T/A/D ROS: as per HPI, all ohter pertinent ros negative Home Medications Medication Instructions Recorded Vitamins (Sjr) - 1 tab PO DAILY 08/12/19 Acetaminophen [Tylenol] 650 mg PO Q6H PRN #20 capsule MDD 5 09/08/19 Ferrous Sulfate [Feosol] 325 mg PO DAILY #30 tablet 09/08/19 Ibuprofen 600 mg PO Q6H PRN #30 tablet 09/08/19 Oxycodone HCl 5 mg PO Q6H PRN #14 tablet MDD 5 09/08/19 Vital Signs Temperature 98.5 F 09/09/19 11:30 Pulse Rate 81 09/09/19 11:30 Respiratory Rate 18 09/09/19 11:30 Blood Pressure 144/95 09/09/19 11:30 O2 Sat by Pulse Oximetry (%) 100 09/07/19 17:35 Intake & Output 09/06/19 09/07/19 09/08/19 09/09/19 23:59 23:59 23:59 23:59 Intake Total 150 1425 650 Output Total 700 2700 900 Balance -550 -1275 -250 Weight 72.121 kg NAD awake and alert neck supple RRR CTA soft NT/ND no LE edema, clubbing or cyanosis CBC, BMP 09/08/19 07:30 09/07/19 14:00 Current Medications Acetaminophen (Tylenol -) 650 mg PO Q4H PRN PRN Reason: FEVER Last Admin: 09/09/19 11:45 Dose: 650 mg Bisacodyl (Dulcolax Suppository -) 10 mg RC PRN PRN PRN Reason: CONSTIPATION Diphenhydramine HCl (Benadryl Injection -) 25 mg IVPUSH Q4H PRN PRN Reason: Pruritis Last Admin: 09/07/19 19:26 Dose: 25 mg Parenteral Electrolytes (Plasma-Lyte 148 -) 1,000 mls @ 75 mls/hr IV [facility] Last Admin: 09/07/19 14:20 Dose: 75 mls/hr Oxytocin/Sodium Chloride (Normal Saline+20 Units Oxytocin -) 20 unit in 1,000 mls @ 125 mls/hr IV [facility] Last Admin: 09/08/19 12:45 Dose: 125 mls/hr Ibuprofen (Motrin -) 600 mg PO Q4H PRN PRN Reason: PAIN LEVEL 1 - 3 Last Admin: 09/08/19 13:15 Dose: 600 mg Labetalol HCl (Normodyne -) 200 mg PO Q6H PRN PRN Reason: HYPERTENSION BP >140/90 Last Admin: 09/09/19 11:33 Dose: 200 mg Ondansetron HCl (Zofran Injection) 4 mg IVPUSH Q4H PRN PRN Reason: NAUSEA Last Admin: 09/09/19 06:53 Dose: 4 mg Oxycodone HCl (Roxicodone -) 5 mg PO Q4H PRN PRN Reason: PAIN LEVEL 6-10 Last Admin: 09/09/19 11:45 Dose: 5 mg Simethicone (Mylicon -) 80 mg PO Q4H PRN PRN Reason: GAS Last Admin: 09/09/19 11:45 Dose: 80 mg 24 year old woman with history of asthma (as a child) who presented with sob and found to have hypertension/preeclamspia now s/p with hypertension. 1. Preeclampisa with HELLP features 2. Proteinuria 3. Hypertension 4. Low platelets 5. Slight elevation in platelet counts Continue labetalol 200mg Q6h PRN for systolic BP > 140 or diastolic BP > 90 Low sodium diet Repeat CBC and CMP in AM Likely will need to be on antihypertensive medications on discharge Thank you Rd Naidu DO
[2019-09-09] MEDS: ELECTROLYTE-148 SOLN 1,000 ML IV SCH (16:00)
[2019-09-09] MEDS: IBUPROFEN 600 MG TABLET (FP) PO PRN ×2 (16:04→21:44)
[2019-09-10] MEDS: LABETALOL HCL 200 MG TABLET (FP) PO PRN ×4 (01:55→22:22)
--- NOTE | 2019-09-10 05:23 | PN ---
Post Progress Note - Subjective Subjective: 24 yo Para 1 with complicated by Pre-Eclampsia with HELLP features, status post primary at 35 weeks. She's being seen by Ssis Developer and is on Labetalol. Post Day: 3 Type of Delivery: Primary C/S Vital Signs: Vital Signs Temperature 98.4 F 09/09/19 22:00 Pulse Rate 83 09/09/19 22:00 Respiratory Rate 18 09/09/19 22:00 Blood Pressure 144/89 09/10/19 01:51 O2 Sat by Pulse Oximetry (%) 100 09/07/19 17:35 Breast Exam: Yes: Soft Uterus: Yes: Fundus Firm Incision: Yes: Dressing dry and intact Abdomen/GI: Yes: Abdomen soft, Tolerating PO Lochia: Yes: Rubra Lochia, amount: Small Extremities: Yes: Calves non-tender Perineum: Yes: Intact Activity: Ambulating - Labs Labs: CBC WBC 8.0 K/mm3 (4.0-10.0) 09/08/19 07:30 RBC 2.93 M/mm3 (3.60-5.2) L 09/08/19 07:30 Hgb 9.4 GM/dL (10.7-15.3) L 09/08/19 07:30 Hct 26.9 % (32.4-45.2) L 09/08/19 07:30 MCV 91.6 fl (80-96) 09/08/19 07:30 MCH 32.1 pg (25.7-33.7) 09/08/19 07:30 MCHC 35.1 g/dl (32.0-36.0) 09/08/19 07:30 RDW 14.0 % (11.6-15.6) 09/08/19 07:30 Plt Count 109 K/MM3 (134-434) L 09/08/19 07:30 MPV 10.5 fl (7.5-11.1) 09/08/19 07:30 Absolute Neuts (auto) 6.9 K/mm3 (1.5-8.0) 09/08/19 07:30 Neutrophils % 85.8 % (42.8-82.8) H 09/08/19 07:30 Lymphocytes % 9.3 % (8-40) 09/08/19 07:30 Monocytes % 4.8 % (3.8-10.2) 09/08/19 07:30 Eosinophils % 0.0 % (0-4.5) D 09/08/19 07:30 Basophils % 0.1 % (0-2.0) 09/08/19 07:30 Nucleated RBC % 0 % (0-0) 09/08/19 07:30 Assessment/Plan Status post primary Preeclampsia Continue Labetalol Management as per Dr. Sultana ( Ssis Developer )
[2019-09-10] MEDS: IBUPROFEN 600 MG TABLET (FP) PO PRN (05:27)
[2019-09-10] MEDS: ACETAMINOPHEN 325 MG TABLET (FP) PO PRN ×3 (05:27→20:18)
[2019-09-10 08:07] LABS: BASO % 0.5 % (0-2.0); HEMATOCRIT 26.1 % (32.4-45.2); LYMPH % 15.1 % (8-40); MCHC 34.4 g/dl (32.0-36.0); MEAN CELL VOLUME 92.9 fl (80-96); MEAN PLT VOLUME 9.8 fl (7.5-11.1); MONO % 4.9 % (3.8-10.2); NEUT % 78.5 % (42.8-82.8); PLATELET COUNT 141 K/MM3 (134-434); RBC 2.81 M/mm3 (3.60-5.2); RDW 14.2 % (11.6-15.6)
[2019-09-10 09:10] LABS: ALBUMIN 2.1 g/dl (3.4-5.0); BILIRUBIN,TOTAL 0.3 mg/dL (0.2-1); BLOOD UREA NITROGEN 9.3 mg/dL (7-18); CALCIUM 8.1 mg/dL (8.5-10.1); CREATININE 0.7 mg/dL (0.55-1.3); POTASSIUM 4.3 mmol/L (3.5-5.1)
--- NOTE | 2019-09-10 10:21 | PN ---
Progress Note, Physician Chief Complaint: The patient is feeling better. No headache. No chest tightness. Maintains good urine output. Off IVs. Has a rash on her body, which she says started when Magnesium was infusing. Less itching now. History of Present Illness: 24 year old woman with history of asthma (as a child) who presented with sob and found to have hypertension/preeclamspia now s/p with hypertension. - Current Medication List Current Medications: Active Medications Acetaminophen (Tylenol -) 650 mg PO Q4H PRN PRN Reason: FEVER Last Admin: 09/10/19 05:27 Dose: 650 mg Bisacodyl (Dulcolax Suppository -) 10 mg RC PRN PRN PRN Reason: CONSTIPATION Diphenhydramine HCl (Benadryl Injection -) 25 mg IVPUSH Q4H PRN PRN Reason: Pruritis Last Admin: 09/07/19 19:26 Dose: 25 mg Parenteral Electrolytes (Plasma-Lyte 148 -) 1,000 mls @ 75 mls/hr IV [facility] COUNTS [facility]CLUDE 234 BEDS AT THE [facility] Last Admin: 09/09/19 16:00 Dose: Not Given Oxytocin/Sodium Chloride (Normal Saline+20 Units Oxytocin -) 20 unit in 1,000 mls @ 125 mls/hr IV [facility] COUNTS INCLUDE 234 BEDS AT THE [facility] Last Admin: 09/08/19 12:45 Dose: 125 mls/hr Ibuprofen (Motrin -) 600 mg PO Q4H PRN PRN Reason: PAIN LEVEL 1 - 3 Last Admin: 09/10/19 05:27 Dose: 600 mg Labetalol HCl (Normodyne -) 200 mg PO Q6H PRN PRN Reason: HYPERTENSION Last Admin: 09/10/19 01:55 Dose: 200 mg Ondansetron HCl (Zofran Injection) 4 mg IVPUSH Q4H PRN PRN Reason: NAUSEA Last Admin: 09/09/19 06:53 Dose: 4 mg Oxycodone HCl (Roxicodone -) 5 mg PO Q4H PRN PRN Reason: PAIN LEVEL 6-10 Last Admin: 09/09/19 11:45 Dose: 5 mg Simethicone (Mylicon -) 80 mg PO Q4H PRN PRN Reason: GAS Last Admin: 09/09/19 21:44 Dose: 80 mg - Objective Vital Signs: Vital Signs Temperature 98.4 F 11/27/19 22:00 Pulse Rate 83 09/10/19 05:52 Respiratory Rate 18 09/09/19 22:00 Blood Pressure 143/96 09/10/19 05:52 O2 Sat by Pulse Oximetry (%) 100 09/07/19 17:35 Constitutional: Yes: Well Nourished, No Distress, Calm Eyes: Yes: Conjunctiva Clear HENT: Yes: Atraumatic Neck: Yes: Trachea Midline Cardiovascular: Yes: Regular Rate and Rhythm, S1, S2 Respiratory: Yes: CTA Bilaterally Gastrointestinal: Yes: Normal Bowel Sounds, Soft Edema: Yes Edema: LLE: 2+, RLE: 2+ Neurological: Yes: Alert, Oriented Labs: CBC, BMP 09/10/19 07:47 09/10/19 07:47 Assessment/Plan 24 year old female with history of childhood asthma who presented with sob and found to have hypertension/preeclamspia. S/p with hypertension. BP tends to fluctuate, and is controlled on the current regimen of Labetalol. Platelets improving. LFT's stable. Will continue the current regimen of Labetalol, and watch closely. Will stop Motrin
[2019-09-10] MEDS: ELECTROLYTE-148 SOLN 1,000 ML IV SCH ×2 (20:13→20:15)
[2019-09-10] MEDS: SIMETHICONE 80 MG TAB.CHEW (FP) PO PRN (20:18)
[2019-09-10] MEDS: MAGNESIUM SULFATE 20GM/500ML - 20 GM/500 ML INFUS.BAG IVPB SCH (21:10)
[2019-09-10] MEDS: OXYTOCIN 20 UNITS in 0.9% NS 20 UNIT/1,000 ML INFUS.BAG IV SCH (21:44)
[2019-09-11] MEDS: ACETAMINOPHEN 325 MG TABLET (FP) PO PRN ×3 (00:37→19:43)
[2019-09-11] MEDS: SIMETHICONE 80 MG TAB.CHEW (FP) PO PRN ×2 (00:37→08:13)
[2019-09-11] MEDS ORDERED: NIFEdipine E.R. 30 MG TABLET (FP) PO ONE (01:15)
[2019-09-11 08:34] LABS: BASO % 0.2 % (0-2.0); EOS % 1.8 % (0-4.5); HEMATOCRIT 30.6 % (32.4-45.2); HEMOGLOBIN 10.4 GM/dL (10.7-15.3); LYMPH % 19.7 % (8-40); MEAN CELL VOLUME 94.1 fl (80-96); MEAN PLT VOLUME 9.9 fl (7.5-11.1); MONO % 4.3 % (3.8-10.2); PLATELET COUNT 198 K/MM3 (134-434); RBC 3.25 M/mm3 (3.60-5.2); RDW 14.2 % (11.6-15.6); WHITE BLOOD COUNT 6.5 K/mm3 (4.0-10.0)
[2019-09-11 08:58] LABS: ALBUMIN 2.6 g/dl (3.4-5.0); BILIRUBIN,TOTAL 0.4 mg/dL (0.2-1); BLOOD UREA NITROGEN 6.3 mg/dL (7-18); CALCIUM 8.9 mg/dL (8.5-10.1); CREATININE 0.6 mg/dL (0.55-1.3); TOT PROT 5.8 g/dl (6.4-8.2)
[2019-09-11] MEDS: LABETALOL HCL 200 MG TABLET (FP) PO PRN (10:14)
[2019-09-11] MEDS ORDERED: LABETALOL HCL 200 MG TABLET (FP) PO ONE (11:54)
[2019-09-11] MEDS ORDERED: MAGNESIUM SULF 50% (8.12 MEQ/2 ML-1 GM VIAL) IVPB ONE (12:25)
[2019-09-11] MEDS ORDERED: MAGNESIUM 4GM/H20 - 4 GM/100 ML IVPB IVPB ONE (12:25)
--- NOTE | 2019-09-11 12:33 | PN ---
Post Progress Note - Subjective Subjective: Patient is mabulating, tolerating PO, lochia decreased, no KELLY, no vision changes , epigastric pain present, LE edema improved, no CP, no SOB Post Day: 4 Type of Delivery: Primary C/S Vital Signs: Vital Signs Temperature 98.2 F 09/11/19 09:00 Pulse Rate 76 09/11/19 09:00 Respiratory Rate 20 09/11/19 09:00 Blood Pressure 129/76 09/11/19 09:00 O2 Sat by Pulse Oximetry (%) 100 09/07/19 17:35 Breast Exam: Yes: Other Uterus: Yes: Fundus Firm Incision: Yes: Dressing dry and intact, Sutures intact Abdomen/GI: Yes: Abdomen soft Lochia, amount: Moderate Extremities: Yes: Calves non-tender Activity: Ambulating - Labs Labs: CBC WBC 6.5 K/mm3 (4.0-10.0) 09/11/19 07:55 RBC 3.25 M/mm3 (3.60-5.2) L 09/11/19 07:55 Hgb 10.4 GM/dL (10.7-15.3) L 09/11/19 07:55 Hct 30.6 % (32.4-45.2) L D 09/11/19 07:55 MCV 94.1 fl (80-96) 09/11/19 07:55 MCH 32.0 pg (25.7-33.7) 09/11/19 07:55 MCHC 34.0 g/dl (32.0-36.0) 09/11/19 07:55 RDW 14.2 % (11.6-15.6) 09/11/19 07:55 Plt Count 198 K/MM3 (134-434) D 09/11/19 07:55 MPV 9.9 fl (7.5-11.1) 09/11/19 07:55 Absolute Neuts (auto) 4.8 K/mm3 (1.5-8.0) 09/11/19 07:55 Neutrophils % 74.0 % (42.8-82.8) 09/11/19 07:55 Lymphocytes % 19.7 % (8-40) D 09/11/19 07:55 Monocytes % 4.3 % (3.8-10.2) 09/11/19 07:55 Eosinophils % 1.8 % (0-4.5) 09/11/19 07:55 Basophils % 0.2 % (0-2.0) 09/11/19 07:55 Nucleated RBC % 0 % (0-0) 09/11/19 07:55 Problem List - Problems (1) Preeclampsia, severe Code(s): O14.10 - SEVERE PRE-ECLAMPSIA, UNSPECIFIED TRIMESTER Qualifiers: Trimester: third trimester Qualified Code(s): O14.13 - Severe pre-eclampsia , third trimester Assessment/Plan POD # 4 S/P urgent CD due to PEC with severe features, S/P mag prophylaxis in stable condition, adequate UOP. BP in severe range and MD not notified last night, BP in mild range now. Epigastic pain and LFT elevated, nephrology service on board. 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
--- NOTE | 2019-09-11 12:58 | PN ---
Progress Note (short form) - Note Progress Note: Renal follow up for hypertension Seen and examined at the bedside noted to have very high BP last night pt felt very tired reports urinating a lot denies any cp, headache, palpitations Vital Signs Temperature 98.2 F 09/11/19 09:00 Pulse Rate 90 09/11/19 12:30 Respiratory Rate 20 09/11/19 12:30 Blood Pressure 146/90 09/11/19 12:30 O2 Sat by Pulse Oximetry (%) 100 09/07/19 17:35 Intake & Output 09/08/19 09/09/19 09/10/19 09/11/19 23:59 23:59 23:59 23:59 Intake Total 1425 650 Output Total 2700 900 Balance -1275 -250 NAD awake and alert neck supple RRR CTA mild epigastric tenderness no LE edema, clubbing or cyanosis CBC, BMP 09/11/19 07:55 09/11/19 07:55 Current Medications Acetaminophen (Tylenol -) 650 mg PO Q4H PRN PRN Reason: FEVER Last Admin: 09/11/19 08:12 Dose: 650 mg Bisacodyl (Dulcolax Suppository -) 10 mg RC PRN PRN PRN Reason: CONSTIPATION Magnesium Sulfate (Magnesium 4gm/H20 -) 4 gm in 100 mls @ 100 mls/hr IVPB ONCE ONE Stop: 09/11/19 13:24 Labetalol HCl (Normodyne -) 400 mg PO BID SORAIDA Nifedipine (Procardia Xl -) 30 mg PO DAILY@2200 SORAIDA Ondansetron HCl (Zofran Injection) 4 mg IVPUSH Q4H PRN PRN Reason: NAUSEA Last Admin: 09/09/19 06:53 Dose: 4 mg Simethicone (Mylicon -) 80 mg PO Q4H PRN PRN Reason: GAS Last Admin: 09/11/19 08:13 Dose: 80 mg 24 year old woman with history of asthma (as a child) who presented with sob and found to have hypertension/preeclamspia now s/p with hypertension. 1. Preeclampisa with HELLP features 2. Proteinuria 3. Hypertension 4. Low platelets 5. Slight elevation in platelet counts Started on Nifedpine ER 30mg Daily (to be given in evening) change parameters of Labetalol to >150 systolic or >95 diastolic LFTs up trending, had epigastric tenderness check US of the RUQ Case discussed with OB Thank you Rd Naidu DO
[2019-09-11] MEDS ORDERED: MAGNESIUM SULFATE 20GM/500ML - 20 GM/500 ML INFUS.BAG ONE (13:00)
[2019-09-11] MEDS ORDERED: LABETALOL HCL 200 MG TABLET (FP) PO PRN (13:00)
[2019-09-11] MEDS: LACTATED RINGERS SOLUTION 1,000 ML IV SCH (13:55)
[2019-09-11 15:23] LABS: BASO % 0.6 % (0-2.0); EOS % 1.9 % (0-4.5); HEMATOCRIT 29.2 % (32.4-45.2); HEMOGLOBIN 9.8 GM/dL (10.7-15.3); LYMPH % 17.6 % (8-40); MCHC 33.5 g/dl (32.0-36.0); MEAN CELL VOLUME 95.7 fl (80-96); MEAN PLT VOLUME 9.7 fl (7.5-11.1); MONO % 5.2 % (3.8-10.2); NEUT % 74.7 % (42.8-82.8); PLATELET COUNT 195 K/MM3 (134-434); RBC 3.06 M/mm3 (3.60-5.2); RDW 14.1 % (11.6-15.6); WHITE BLOOD COUNT 7.6 K/mm3 (4.0-10.0)
[2019-09-11 15:49] LABS: ALBUMIN 2.5 g/dl (3.4-5.0); BILIRUBIN,TOTAL 0.4 mg/dL (0.2-1); BLOOD UREA NITROGEN 6.8 mg/dL (7-18); CREATININE 0.6 mg/dL (0.55-1.3); POTASSIUM 4.2 mmol/L (3.5-5.1); TOT PROT 5.6 g/dl (6.4-8.2); URIC ACID 6.6 mg/dL (2.6-7.2)
[2019-09-11] MEDS ORDERED: ACETAMINOPHEN 325 MG TABLET (FP) ONE (19:41)
[2019-09-11] MEDS ORDERED: NIFEdipine 10 MG CAPSULE (FP) ONE (21:56)
[2019-09-11] MEDS ORDERED: LABETALOL HCL 200 MG TABLET (FP) PO SCH ×2 (22:00)
[2019-09-11] MEDS ORDERED: NIFEdipine E.R. 30 MG TABLET (FP) PO SCH (22:00)
[2019-09-12] MEDS ORDERED: MAGNESIUM SULFATE 20GM/500ML - 20 GM/500 ML INFUS.BAG ONE (00:14)
[2019-09-12] MEDS ORDERED: MAGNESIUM SULFATE 20GM/500ML - 20 GM/500 ML INFUS.BAG IVPB SCH ×2 (00:35→03:10)
[2019-09-12] MEDS ORDERED: LABETALOL HCL 200 MG TABLET (FP) ONE (00:53)
[2019-09-12] MEDS: LABETALOL HCL 200 MG TABLET (FP) PO SCH ×2 (01:00→10:02)
[2019-09-12] MEDS ORDERED: ACETAMINOPHEN 325 MG TABLET (FP) ONE (06:33)
[2019-09-12] MEDS: ACETAMINOPHEN 325 MG TABLET (FP) PO PRN ×3 (06:40→19:23)
[2019-09-12 07:17] LABS: ALBUMIN 2.7 g/dl (3.4-5.0); BILIRUBIN,TOTAL 0.3 mg/dL (0.2-1); BLOOD UREA NITROGEN 5.1 mg/dL (7-18); CALCIUM 7.5 mg/dL (8.5-10.1); CREATININE 0.6 mg/dL (0.55-1.3); MAGNESIUM 6.3 mg/dL (1.8-2.4); POTASSIUM 3.9 mmol/L (3.5-5.1); TOT PROT 6.1 g/dl (6.4-8.2)
[2019-09-12] MEDS: NIFEdipine E.R. 30 MG TABLET (FP) PO SCH (10:00)
--- NOTE | 2019-09-12 10:16 | PN ---
Post Progress Note - Subjective Subjective: PAtient is doing well, she reports no H/A, vision changes, CP, SOB N/V, and epigastric pain has improved. Lochia is decreased and baby is in NICU Type of Delivery: Primary C/S Vital Signs: Vital Signs Temperature 97.7 F 09/12/19 08:00 Pulse Rate 83 09/12/19 09:00 Respiratory Rate 20 09/12/19 09:00 Blood Pressure 132/86 09/12/19 09:00 O2 Sat by Pulse Oximetry (%) 100 09/07/19 17:35 Breast Exam: Yes: Other (deferred) Uterus: Yes: Fundus Firm, Fundus below umbilicus Incision: Yes: Sutures intact Abdomen/GI: Yes: Abdomen soft Lochia: Yes: Serosa Lochia, amount: Moderate Extremities: Yes: Calves non-tender Perineum: Yes: Laceration (repair intact) Activity: Ambulating - Labs Labs: CBC WBC 7.6 K/mm3 (4.0-10.0) 09/11/19 14:45 RBC 3.06 M/mm3 (3.60-5.2) L 09/11/19 14:45 Hgb 9.8 GM/dL (10.7-15.3) L 09/11/19 14:45 Hct 29.2 % (32.4-45.2) L 09/11/19 14:45 MCV 95.7 fl (80-96) 09/11/19 14:45 MCH 32.0 pg (25.7-33.7) 09/11/19 14:45 MCHC 33.5 g/dl (32.0-36.0) 09/11/19 14:45 RDW 14.1 % (11.6-15.6) 09/11/19 14:45 Plt Count 195 K/MM3 (134-434) 09/11/19 14:45 MPV 9.7 fl (7.5-11.1) 09/11/19 14:45 Absolute Neuts (auto) 5.6 K/mm3 (1.5-8.0) 09/11/19 14:45 Neutrophils % 74.7 % (42.8-82.8) 09/11/19 14:45 Lymphocytes % 17.6 % (8-40) 09/11/19 14:45 Monocytes % 5.2 % (3.8-10.2) 09/11/19 14:45 Eosinophils % 1.9 % (0-4.5) 09/11/19 14:45 Basophils % 0.6 % (0-2.0) 09/11/19 14:45 Nucleated RBC % 0 % (0-0) 09/11/19 14:45 Problem List - Problems (1) Preeclampsia, severe Code(s): O14.10 - SEVERE PRE-ECLAMPSIA, UNSPECIFIED TRIMESTER Qualifiers: Trimester: third trimester Qualified Code(s): O14.13 - Severe pre-eclampsia , third trimester Assessment/Plan POD # 5 for PEC with svere features, currently on mag prophylaxis for second time due to elevated LFT and severe BP episode. BP well controlled with nifedipine. Nephrology on boad, LFT trending down. Adequate UOP and mag at 1g/ hr. -Mag off following 24hrs of prophylaxis -F/U LFTs -D/C labetalol and continue nifedipine
--- NOTE | 2019-09-12 10:23 | PN ---
Progress Note (short form) - Note Progress Note: Renal follow up for hypertension Seen and examined at the bedside transferred to L and R for Mg infusion feels better this am had some nausea last night no chest pain or sob tolerating breakfast no abd pain Vital Signs Temperature 97.7 F 09/12/19 08:00 Pulse Rate 83 09/12/19 09:00 Respiratory Rate 20 09/12/19 09:00 Blood Pressure 132/86 09/12/19 09:00 O2 Sat by Pulse Oximetry (%) 100 09/07/19 17:35 Intake & Output 09/09/19 09/10/19 09/11/19 09/12/19 23:59 23:59 23:59 23:59 Intake Total 650 850 900 Output Total 900 3050 2950 Balance -250 -2200 -2050 NAD awake and alert neck supple RRR CTA no tenderness no LE edema, clubbing or cyanosis CBC, BMP 09/11/19 14:45 09/12/19 06:30 Current Medications Acetaminophen (Tylenol -) 650 mg PO Q4H PRN PRN Reason: FEVER Last Admin: 09/12/19 06:40 Dose: 650 mg Bisacodyl (Dulcolax Suppository -) 10 mg RC PRN PRN PRN Reason: CONSTIPATION Lactated Ringer's (Lactated Ringers Solution) 1,000 mls @ 75 mls/hr IV [facility] Last Admin: 09/11/19 13:55 Dose: 75 mls/hr Magnesium Sulfate (Magnesium Sulfate 20gm/500ml -) 20 gm in 500 mls @ 25 mls/ hr IVPB [facility] Last Admin: 09/12/19 03:10 Dose: 25 mls/hr Nifedipine (Procardia Xl -) 30 mg PO DAILY [facility] Last Admin: 09/12/19 10:00 Dose: 30 mg Ondansetron HCl (Zofran Injection) 4 mg IVPUSH Q4H PRN PRN Reason: NAUSEA Last Admin: 09/09/19 06:53 Dose: 4 mg Simethicone (Mylicon -) 80 mg PO Q4H PRN PRN Reason: GAS Last Admin: 09/11/19 08:13 Dose: 80 mg 24 year old woman with history of asthma (as a child) who presented with sob and found to have hypertension/preeclamspia now s/p with hypertension. 1. Preeclampisa with HELLP features 2. Proteinuria 3. Hypertension 4. Low platelets 5. Slight elevation in platelet counts BP is improved/moderated would maintain on Nifedipine ER 30mg Daily, can discontinue Labetalol Maintain a low salt diet stable for discharge with outpatient follow up in 1 weeks Can cancel US of liver as pt no longer has tenderness will need to have laboratory studies repeated as an outpatient Thank you Rd Naidu DO
[2019-09-12] MEDS: LACTATED RINGERS SOLUTION 1,000 ML IV SCH (16:55)
[2019-09-12 18:52] LABS: BASO % 0.5 % (0-2.0); HEMATOCRIT 31.4 % (32.4-45.2); HEMOGLOBIN 10.5 GM/dL (10.7-15.3); LYMPH % 16.1 % (8-40); MCH 31.9 pg (25.7-33.7); MCHC 33.6 g/dl (32.0-36.0); MEAN PLT VOLUME 8.3 fl (7.5-11.1); MONO % 4.9 % (3.8-10.2); NEUT % 76.5 % (42.8-82.8); PLATELET COUNT 295 K/MM3 (134-434); RBC 3.31 M/mm3 (3.60-5.2); RDW 14.4 % (11.6-15.6); WHITE BLOOD COUNT 9.2 K/mm3 (4.0-10.0)
[2019-09-12 19:19] LABS: ALBUMIN 2.7 g/dl (3.4-5.0); BILIRUBIN,TOTAL 0.2 mg/dL (0.2-1); BLOOD UREA NITROGEN 10.5 mg/dL (7-18); CALCIUM 7.5 mg/dL (8.5-10.1); CREATININE 0.9 mg/dL (0.55-1.3); POTASSIUM 3.8 mmol/L (3.5-5.1)
[2019-09-13] MEDS: ACETAMINOPHEN 325 MG TABLET (FP) PO PRN (05:33)
[2019-09-13] MEDS: NIFEdipine E.R. 30 MG TABLET (FP) PO SCH (09:49)
--- NOTE | 2019-09-13 09:56 | DS ---
Physical Examination Vital Signs: Vital Signs Temperature 98.6 F 09/12/19 22:00 Pulse Rate 82 09/13/19 05:40 Respiratory Rate 18 09/13/19 02:00 Blood Pressure 139/89 09/13/19 05:40 O2 Sat by Pulse Oximetry (%) 100 09/07/19 17:35 Findings/Remarks: Patient is doing well, ambulating, tolerating PO, lochia decreased, passing gas , no H/A, no vision changes, no CP, no N?V, no RUQ pain. Constitutional: Yes: No Distress HENT: Yes: Atraumatic Neck: Yes: Supple Cardiovascular: Yes: Regular Rate and Rhythm Respiratory: Yes: Regular Gastrointestinal: Yes: Soft ...Rectal Exam: Yes: Deferred Renal/: Yes: Other (no lochia) Breast(s): Yes: Other (deferred) Musculoskeletal: Yes: WNL Extremities: Yes: WNL Edema: Yes Edema: LLE: Trace, RLE: Trace Integumentary: Yes: WNL Wound/Incision: Yes: Well Approximated Neurological: Yes: Alert, Oriented ...Motor Strength: WNL Psychiatric: Yes: Alert, Oriented Labs: CBC, BMP 09/12/19 18:40 09/12/19 18:40 Discharge Summary Problems reviewed: Yes Reason For Visit: PEC with severe Featuares Current Active Problems Preeclampsia, severe (Acute) Status post section routine follow-up (Acute) Procedures: Principal: Urgent PLTCS Hospital Course: Patient was admitted for severe elevated BPs with pec with severe features. SHe was delivered via urgent CD at 35+ wks of gestation. is in NICU in stable condition. She underwent magnesium seizure prophylaxis for 24 hourr following delivery and on POD # 4 for severe BP and elevated LFTs. Patient is in stable condition, asymptomatic, and BP controlled with 30mg Nifedipine ER. She was given specific and strict follow up instructions. Health Concerns: Pre-eclampsia Plan of Treatment: Short term follow up at health center. Condition: Stable - Instructions Diet, Activity, Other Instructions: Please follow discharge instruction. Follow up within a week at health center for incision and blood pressure check. Call MD with any questions or concerns Referrals: Darci Gaxiola MD [Staff Physician] - Disposition: HOME - Home Medications Comprehensive Discharge Medication List: Ambulatory Orders Vitamins (Sjr) - 1 tab PO DAILY 08/12/19 Acetaminophen [Tylenol] 650 mg PO Q6H PRN #20 capsule MDD 5 09/08/19 Ferrous Sulfate [Feosol] 325 mg PO DAILY #30 tablet 09/08/19 Ibuprofen 600 mg PO Q6H PRN #30 tablet 09/08/19 Oxycodone HCl 5 mg PO Q6H PRN #14 tablet MDD 5 09/08/19 Nifedipine ER [Procardia XL -] 30 mg PO DAILY #7 tab.er.24 MDD 1 09/13/19
[2019-09-13] MEDS ORDERED: PRENATAL VITAMINS W/ FOLIC ACID TABLET (FP) PO SCH (10:00)
[2019-09-13 10:18] LABS: BASO % 0.8 % (0-2.0); EOS % 2.3 % (0-4.5); HEMATOCRIT 32.8 % (32.4-45.2); LYMPH % 21.5 % (8-40); MCH 31.8 pg (25.7-33.7); MCHC 33.5 g/dl (32.0-36.0); MEAN CELL VOLUME 94.8 fl (80-96); MEAN PLT VOLUME 8.5 fl (7.5-11.1); MONO % 4.2 % (3.8-10.2); NEUT % 71.2 % (42.8-82.8); PLATELET COUNT 309 K/MM3 (134-434); RBC 3.46 M/mm3 (3.60-5.2); RDW 14.2 % (11.6-15.6); WHITE BLOOD COUNT 7.9 K/mm3 (4.0-10.0)
[2019-09-13 10:36] LABS: ALBUMIN 2.8 g/dl (3.4-5.0); BILIRUBIN,TOTAL 0.4 mg/dL (0.2-1); BLOOD UREA NITROGEN 8.6 mg/dL (7-18); CALCIUM 8.1 mg/dL (8.5-10.1); CREATININE 0.6 mg/dL (0.55-1.3); POTASSIUM 4.1 mmol/L (3.5-5.1); TOT PROT 6.2 g/dl (6.4-8.2)
[2019-09-13 14:47] VITALS: BP 132/93; PULSE 74; TEMP 97.9
--- NOTE | 2019-09-14 16:59 | PATH ---
Surgical Pathology Report Patient Name: CHAU BLUE [facility]. Rec. 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 Electronically Signed Sobeida Danielson M.D. Gross Description The specimen is received fresh labeled placenta and is a 332 gram, 18.0 x 13.0 x 2.3 cm. placenta with attached membranes and umbilical cord. The attached membranes are [place], translucent with focal opacities and insert marginally. The umbilical cord measures 8 cm. in length and averages 0.9 cm. in diameter. The cord inserts eccentrically, 3 cm. to the nearest margin. No true knots or strictures are identified. Cut surface of the umbilical cord reveals 3 vessels. The surface is dale-blue with minimal fibrin deposition and appropriate caliber vessels. The maternal surface is red-brown with focal defects. Sectioning reveals red-brown, spongy parenchyma. No lesions are identified. Algorithm Design Engineer sections are submitted in three cassettes as follows: 1- membrane rolls and umbilical cord; 2-3- full thickness sections of placenta. 09/11/2019 [facility]09/11/2019
== END 2019-09-13 15:50 | disposition home or self-care (01) | DRG 540 ==
LOC: JDEL 12:25 → JLDR 14:10 → J3W 09-08 21:00 → JLDR 09-11 13:37 → J3W 09-12 14:25
PROVIDERS: ADMIT Student in an Organized Health Care Education/Training Program; ATTEND Student in an Organized Health Care Education/Training Program
PROC: 10D00Z1 Extraction of Products of Conception, Low, Open Approach (ICD-10-PCS; principal; 2019-09-07)
DX: O14.13 Severe pre-eclampsia, third trimester (principal); O24.429 Gestational diabetes mellitus in childbirth, unspecified control; O99.113 Other diseases of the blood and blood-forming organs and certain disorders involving the immune mechanism complicating pregnancy, third trimester; O60.14X0 Preterm labor third trimester with preterm delivery third trimester, not applicable or unspecified; O13.3 Gestational [pregnancy-induced] hypertension without significant proteinuria, third trimester; D69.6 Thrombocytopenia, unspecified; Z3A.35 35 weeks gestation of pregnancy; Z37.0 Single live birth
CPT/HCPCS: 36415; 36600; 80053; 81003; 82570; 82803; 82977; 83615; 83735; 84156; 84550; 85025; 86593; 86850; 86900; 86901; 87389; 88307-TC